=== PATIENT | female | born 1975 | race Caucasian/White ===

== ENCOUNTER → 2016-12-21 | Day surgery (SDC) | payer OTHER ==
[2016-12-17 10:10] VITALS: BP 127/57
[~2016-12-21] VITALS: Ht 157.4 cm; Wt 75.7 kg
[~2016-12-21] MED LIST: ALBUTEROL0.09 MG/A2 IH; AMOXICILLIN500 MG PO; ASMANEX TW110 MCG/AC IH; ASMANEX220 MCG INH; AUGMENTIN 875 M1 TAB PO; AUGMENTIN 875875 MG PO; BACTRIM DS 8001 TA1 PO; CELEXA10 MG PO; CEPHALEXIN500 M1 PO; CIPRO500 MG PO; CIPROFLOXACIN500 MG PO; FAMVIR500 MG PO; FLOVENT INHALER; FLOVENT0.044 MG/A IH; Fioricet 325 MG1 TAB PO; IMODIUM2 MG PO; KLONOPIN1 M1 PO; KLONOPIN1 MG PO; LOMOTIL 0.025 M1 TA1 PO; MEDROL DOSEPAK4 MG PO; NORCO 325 MG-51 TAB PO; PREDNICOT20 MG PO; PRILOSEC20 MG PO; PRILOSEC40 MG PO; QVAR0.08 MG/AC IH; ROBAXIN750 MG PO; TESSALON PERLE200 MG PO; TOPROL XL25 MG PO; TRAMADOL HCL50 MG PO; TRIMOX500 MG PO; TYLENOL WITH CO1 TA1 PO; ULTRAM50 MG PO; VICODIN 5/500 505 M1 PO; VICODIN 5/500 505 MG PO; VICODIN 500 MG-1 TAB PO; XANAX0.5 MG PO; XANAX1 MG PO; ZANTAC150 MG PO; ZOFRAN ODT4 MG SL; ZOFRAN4 MG PO; ZOLOFT20 MG/ML PO
--- NOTE | ~2016-12-21 | O ---
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 She had had 1 , but has no history of any previous cervical manipulation such as conizations, LEEPs, etc. POSTOPERATIVE DIAGNOSES: Pap smear in the office showing low grade squamous intraepithelial lesion and positive high risk human papillomavirus, but unable to perform a colposcopy in the office due to an extremely anterior cervix for unknown reason. She had had 1 , but has no history of any previous cervical manipulation such as conizations, LEEPs, etc. Significantly scarred anterior ectocervix to the anterior vaginal wall and essentially very minimal vaginal ectocervix at all. The colposcopy itself was negative. OPERATION: Itself was a colposcopy under anesthesia, high risk HPV genotyping 16, 18, 45 and an endocervical curetting. SURGEON: Janel. ANESTHESIA: MAC. ESTIMATED BLOOD LOSS: Minimal. REPLACEMENTS: IV fluids and Toradol. COMPLICATIONS: There were no complications. CONDITION: The patient's condition to recovery stable. OPERATIVE SUMMARY: The patient was taken to the operating room in supine position. MAC anesthesia, lithotomy position, prepped and draped in routine manner. The cervix with several manipulators and a tenaculum was able to be visualized, but the anterior cervix itself was extremely scarred to the anterior vaginal wall and essentially was nonexistent visualization. The rest of the ectocervix was extremely minimal as far as the vaginal cervical component went. We did paint the ectocervix with acetic acid and colposcopic exam revealed no atypicalities. We performed using Cytobrush and spatula the obtained material for the genotyping high risk HPV, genotyping 16, 18, 45 and then performed an ECC. All tissue was removed and sent to the lab for processing and review. The cervix was then cleaned off. Good hemostasis was noted. The tenaculum was removed and there was no bleeding from this site. All instrumentation was removed. The patient was taken out of lithotomy position, awakened and transferred to recovery in satisfactory condition. [place], [place] OPERATIVE NOTE NAME: JOCE RODRGIUEZ Ab UNIT #: [id number] ROOM: DOCTOR: EREN HUMPHREY MD BIRTHDATE: [birth year] EREN HUMPHREY MD CM:OPRECORD:OPERATIVE NOTE [id number] EREN HUMPHREY MD 12/21/16 1234 interface
--- NOTE | ~2016-12-21 | WRIGHTHP ---
[place], [place] PATIENT HISTORY AND PHYSICAL EXAM NAME: JOCE RODRIGUEZ [facility] #: [id number] UNIT #: [id number] ROOM: DOCTOR: EREN HUMPHREY MD BIRTHDATE: [birth year] DOS: For surgery on 12/21/2016. HISTORY OF PRESENT ILLNESS: She is a 41-year-old white female, 2, para 2, status post tubal ligation and NovaSure endometrial ablation, who on an annual exam on 12/07/2016 had a Pap smear revealing low-grade KEVYN plus high risk HPV. The patient had come in for colposcopy for these diagnoses, but her cervix was extremely anterior, very difficult to visualize, much less to perform a colposcopy on. My efforts were oglesby, but causing the patient discomfort and we decided mutually that performing a colposcopy and high-risk HPV genotyping under anesthesia would be best. To that end, the consent was signed for a colposcopy and high-risk HPV genotyping under anesthesia and we scheduled this on 12/21/2016. SOCIAL HISTORY: The patient reveals her to be a nonsmoker. She does drink socially. 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 MEDICATIONS: The patient is taking Vyvanse 30 mg capsules in the morning. She is also taking Vicodin 5/300 one tablet as needed p.r.n. before she has physical therapy. PAST MEDICAL AND SURGICAL HISTORY: The patient has a history of anxiety, asthma and tachycardia. Two pregnancies, one vaginal delivery and the second was a primary section. She also has had a cholecystectomy in 2011 as well as a tubal. She has been hospitalized for gastritis, colitis and course for childbirth. REVIEW OF SYSTEMS: Otherwise is stable. FAMILY HISTORY: Reveals her father with hypertension, diabetes, heart disease and status post CVA. Her mother has COPD. Paternal grandmother with cancer of a questionable type. Maternal grandmother with heart disease and cancer again of an unknown type. Her sister also has kidney stones and her son has OCD. PHYSICAL EXAMINATION: GENERAL: Reveals a pleasant white female. She is in no significant distress. VITAL SIGNS: Blood pressure 132/70. She is 5 feet and 176 pounds, BMI is 33.25. HEENT: Grossly intact. NECK: Grossly intact. LUNGS: Grossly intact. CARDIAC: Grossly intact. BREASTS: Grossly intact. ABDOMEN: Grossly intact. EXTREMITIES: Grossly intact. NEUROLOGIC: Grossly intact. GENITOURINARY: External genitalia: Vagina normal. Cervix has been noted above. Uterus is anteverted and anteflexed, somewhat poorly mobile, normal in [place], [place] PATIENT HISTORY AND PHYSICAL EXAM NAME: JOCE RODRIGUEZ UNIT #: [id number] ROOM: DOCTOR: EREN HUMPHREY MD BIRTHDATE: [birth year] size and configuration, nontender. Adnexa negative. RECTAL: Deferred. ASSESSMENT: The assessment is that of a patient with low-grade squamous intraepithelial lesion and positive high-risk human papillomavirus on Pap, but unable to evaluate per colposcopy in the office. PLAN: On 12/21/2016, we will take the patient to the operating room for colposcopy and high risk HPV genotyping 16, 18 and 45. EREN HUMPHREY MD CM:HISPHYS:PATIENT HISTORY AND PHYSICAL EXAMINATION 1412 [id number] KYLE STEVEN [facility] EREN HUMPHREY MD 12/19/16 [id number] interface
[2016-12-21 10:12] VITALS: BP 116/83
[2016-12-21 11:31] VITALS: BP 102/74
[2016-12-21 11:53] VITALS: BP 101/81
== END | disposition home or self-care (01) ==
LOC: SDC 12-17 10:15
PROVIDERS: Obstetrics & Gynecology
DX: N87.0 Mild cervical dysplasia (principal); F41.9 Anxiety disorder, unspecified; J45.909 Unspecified asthma, uncomplicated; R00.0 Tachycardia, unspecified; Z82.49 Family history of ischemic heart disease and other diseases of the circulatory system; Z83.3 Family history of diabetes mellitus; Z82.3 Family history of stroke; Z82.5 Family history of asthma and other chronic lower respiratory diseases; Z98.51 Tubal ligation status

== ENCOUNTER → 2017-02-15 | Outpatient (CLI) | payer OTHER ==
[2017-02-16 07:06] LABS: RHEUMATOID ARTHRITIS FACTOR <10.0 IU/mL (0.0-13.9)
== END | disposition home or self-care (01) ==
LOC: LAB 10:51
PROVIDERS: Anesthesiology
DX: M25.50 Pain in unspecified joint (principal)

== ENCOUNTER 2017-03-17 20:52 | Emergency (ER) | payer OTHER ==
[~2017-03-17] VITALS: Ht 157.4 cm; Wt 75.7 kg
[2017-03-17 20:59] VITALS: BP 136/88
[2017-03-17] MEDS ORDERED: VYVANSE30 MG PO (21:00)
[2017-03-17] MEDS ORDERED: PRILOSEC20 M1 PO (21:00)
[2017-03-17] MEDS ORDERED: NORCO 5-325 TA1 EACH PO (21:00)
[2017-03-17 21:23] LABS: BASO % 0.4 % (0.0-1.0); EOS % 0.4 % (1.0-4.0); HEMATOCRIT 40.1 % (37.0-47.0); LYMPH # 2.8 10*3/uL (1.3-4.4); LYMPH % 26.1 % (27.0-41.0); MEAN CELL VOLUME 85.3 fl (81.0-99.0); MEAN CORPUSCULAR HGB 29.8 pg (27.0-31.0); MEAN CORPUSCULAR HGB CONC 34.9 g/dl (33.0-37.0); MEAN PLATELET VOLUME 12.1 fl (9.6-12.3); MONO # 0.8 10*3/uL (0.1-1.0); MONO % 7.6 % (3.0-9.0); NEUT % 65.2 % (47.0-73.0); PLATELET COUNT AUTOMATED 240 10*3/uL (130-400); RED CELL DISTRI WIDTH 12.6 % (0-14.5); WHITE BLOOD COUNT 10.7 10*3/uL (4.8-10.8)
[2017-03-17 21:36] LABS: PROTHROMBIN TIME 10.2 SECONDS (9.0-12.4)
[2017-03-17 21:41] LABS: ALKALINE PHOSPHATASE 85 U/L (45-117); B-hCG (QUALITATIVE) NEGATIVE (NEGATIVE); BILIRUBIN, TOTAL 0.4 mg/dl (0.2-1.0); BUN 11 mg/dl (7-24); C-REACTIVE PROTEIN 0.47 MG/DL (0-0.3); CARBON DIOXIDE 24 mmol/L (21-32); CHLORIDE 107 mmol/L (98-107); EST GLOM FILT AFRICAN AMERICAN > 60 ml/min; GLUCOSE 106 mg/dL (65-99); MAGNESIUM 2.1 mg/dL (1.5-2.1); POTASSIUM 3.3 mmol/L (3.5-5.1); SGOT/AST 15 IU/L (3-35); SGPT/ALT 34 U/L (12-78); SODIUM 144 mmol/L (136-145); TOTAL PROTEIN 7.5 gm/dL (6.4-8.2)
[2017-03-18 00:20] LABS: BILIRUBIN NEGATIVE (NEGATIVE); BLOOD TRACE-INTACT (NEGATIVE); CLARITY SL CLOUDY (CLEAR); COLOR YELLOW (YELLOW); GLUCOSE NEGATIVE (NEGATIVE); KETONE NEGATIVE (NEGATIVE); LEUKO ESTERASE NEGATIVE (NEGATIVE); NITRITE NEGATIVE (NEGATIVE); PROTEIN NEGATIVE (NEGATIVE); SPECIFIC GRAVITY 1.025 (1.005-1.030); UROBILINOGEN 0.2 E.U./dl (0.2-1.0)
[2017-03-18 00:26] LABS: URINE REFLEX COMMENT NO (NO)
[2017-03-18] MEDS ORDERED: REGLAN5 MG PO (00:57)
== END 2017-03-18 01:18 | disposition home or self-care (01) ==
LOC: ED 20:52
PROVIDERS: Emergency Medicine Emergency Medical Services
DX: K52.9 Noninfective gastroenteritis and colitis, unspecified (principal); Z90.49 Acquired absence of other specified parts of digestive tract; Z79.899 Other long term (current) drug therapy

== ENCOUNTER 2017-06-28 14:09 | Emergency (ER) | payer OTHER ==
[~2017-06-28] VITALS: Ht 157.4 cm; Wt 75.7 kg
[~2017-06-28 14:09] MED LIST changes: +NORCO 5-325 TA1 EACH PO; +PRILOSEC20 M1 PO; +REGLAN5 MG PO; +VYVANSE30 MG PO
[2017-06-28 14:19] VITALS: BP 143/95
[2017-06-28 14:33] LABS: BILIRUBIN NEGATIVE (NEGATIVE); BLOOD TRACE-INTACT (NEGATIVE); CLARITY CLEAR (CLEAR); COLOR YELLOW (YELLOW); GLUCOSE NEGATIVE (NEGATIVE); KETONE NEGATIVE (NEGATIVE); LEUKO ESTERASE NEGATIVE (NEGATIVE); NITRITE NEGATIVE (NEGATIVE); PH 6.5 (5.0-9.0); SPECIFIC GRAVITY <= 1.005 (1.005-1.030); UROBILINOGEN 0.2 E.U./dl (0.2-1.0)
[2017-06-28 14:56] LABS: BACTERIA TRACE
== END 2017-06-28 16:49 | disposition home or self-care (01) ==
LOC: ED 14:09
PROVIDERS: Nurse Practitioner Family
DX: R30.0 Dysuria (principal); F17.200 Nicotine dependence, unspecified, uncomplicated; Z98.890 Other specified postprocedural states; Z98.51 Tubal ligation status; Z79.899 Other long term (current) drug therapy; Z88.6 Allergy status to analgesic agent

== ENCOUNTER 2018-02-04 21:46 | Emergency (ER) | payer OTHER ==
[~2018-02-04] VITALS: Ht 160 cm; Wt 77.1 kg
[2018-02-04 22:59] VITALS: BP 131/90
[2018-02-04] MEDS ORDERED: ZITHROMAX250 MG PO (23:11)
[2018-02-04] MEDS ORDERED: PROAIR HFA8.5 GM INH (23:11)
[2018-02-04] MEDS ORDERED: PREDNISONE20 M1 PO (23:11)
== END 2018-02-04 23:36 | disposition home or self-care (01) ==
LOC: ED 21:46
DX: J20.9 Acute bronchitis, unspecified (principal); J02.9 Acute pharyngitis, unspecified; J45.909 Unspecified asthma, uncomplicated; F17.210 Nicotine dependence, cigarettes, uncomplicated; Z98.890 Other specified postprocedural states; Z98.51 Tubal ligation status; Z88.6 Allergy status to analgesic agent; Z79.899 Other long term (current) drug therapy

== ENCOUNTER 2019-06-28 12:06 | Emergency (ER) | payer OTHER ==
[~2019-06-28] VITALS: Wt 75.7 kg
[~2019-06-28 12:06] MED LIST changes: +PREDNISONE20 M1 PO; +PROAIR HFA8.5 GM INH; +ZITHROMAX250 MG PO
[2019-06-28 12:45] LABS: BILIRUBIN NEGATIVE (NEGATIVE); BLOOD 2+ (NEGATIVE); CLARITY CLOUDY (CLEAR); COLOR YELLOW (YELLOW); GLUCOSE NEGATIVE (NEGATIVE); KETONE NEGATIVE (NEGATIVE); LEUKO ESTERASE 1+ (NEGATIVE); NITRITE POSITIVE (NEGATIVE); PH 5.5 (5.0-9.0); SPECIFIC GRAVITY 1.025 (1.005-1.030)
[2019-06-28 13:09] LABS: BASO # 0.1 10*3/uL (0.0-0.1); BASO % 0.5 % (0.0-1.0); EOS % 0.4 % (1.0-4.0); HEMATOCRIT 44.5 % (37.0-47.0); HEMOGLOBIN 14.9 g/dl (12.0-16.0); LYMPH % 19.2 % (27.0-41.0); MEAN CELL VOLUME 88.5 fl (81.0-99.0); MEAN CORPUSCULAR HGB 29.6 pg (27.0-31.0); MEAN CORPUSCULAR HGB CONC 33.5 g/dl (33.0-37.0); MEAN PLATELET VOLUME 12.6 fl (9.6-12.3); MONO # 0.8 10*3/uL (0.1-1.0); NEUT # 7.4 10*3/uL (2.3-7.9); NEUT % 71.5 % (47.0-73.0); PLATELET COUNT AUTOMATED 200 10*3/uL (130-400); RED BLOOD COUNT 5.03 10*6/uL (4.10-5.10); RED CELL DISTRI WIDTH 12.7 % (0-14.5); WHITE BLOOD COUNT 10.4 10*3/uL (4.8-10.8)
[2019-06-28 13:19] LABS: BACTERIA 2+; MUCOUS 2+; RBC TNTC rbc/hpf (0-2); WBC TNTC wbc/hpf (0-5)
[2019-06-28 13:25] LABS: ALBUMIN 3.7 gm/dl (3.1-4.5); ALKALINE PHOSPHATASE 95 U/L (45-117); BUN 7 mg/dl (7-24); CHLORIDE 108 mmol/L (98-107); CREATININE 0.78 mg/dL (0.55-1.02); POTASSIUM 3.4 mmol/L (3.5-5.1); SGOT/AST 13 IU/L (3-35); SGPT/ALT 32 U/L (12-78); SODIUM 140 mmol/L (136-145); TOTAL PROTEIN 7.9 gm/dL (6.4-8.2)
[2019-06-28] MEDS ORDERED: SEPTDS PO (13:49)
[2019-06-28 13:52] VITALS: BP 106/68
== END 2019-06-28 14:15 | disposition home or self-care (01) ==
LOC: ED 12:06
PROVIDERS: Nurse Practitioner Family
DX: N39.0 Urinary tract infection, site not specified (principal); R19.7 Diarrhea, unspecified; F17.200 Nicotine dependence, unspecified, uncomplicated; Z88.8 Allergy status to other drugs, medicaments and biological substances

== ENCOUNTER → 2020-05-09 | Emergency (ER) | payer OTHER ==
[~2020-05-09] VITALS: Ht 154.9 cm; Wt 75.7 kg
[~2020-05-09] MED LIST changes: +DICYCLOMINE HCL20 MG PO; +SEPTDS PO
[2020-05-09 15:30] LABS: BASO # 0.1 10*3/uL (0.0-0.1); BASO % 0.5 % (0.0-1.0); EOS # 0.1 10*3/uL (0.0-0.4); LYMPH # 2.4 10*3/uL (1.3-4.4); LYMPH % 24.5 % (27.0-41.0); MEAN CELL VOLUME 86.6 fl (81.0-99.0); MEAN CORPUSCULAR HGB 28.7 pg (27.0-31.0); MEAN CORPUSCULAR HGB CONC 33.2 g/dl (33.0-37.0); MEAN PLATELET VOLUME 12.8 fl (9.6-12.3); MONO # 0.7 10*3/uL (0.1-1.0); MONO % 7.3 % (3.0-9.0); NEUT # 6.4 10*3/uL (2.3-7.9); NEUT % 66.5 % (47.0-73.0); PLATELET COUNT AUTOMATED 228 10*3/uL (130-400); RED BLOOD COUNT 5.08 10*6/uL (4.10-5.10); RED CELL DISTRI WIDTH 12.4 % (0-14.5); WHITE BLOOD COUNT 9.7 10*3/uL (4.8-10.8)
[2020-05-09 15:50] LABS: ALBUMIN 3.8 gm/dl (3.1-4.5); ALKALINE PHOSPHATASE 79 U/L (45-117); BUN 7 mg/dl (7-24); CHLORIDE 109 mmol/L (98-107); CREATININE 0.63 mg/dL (0.55-1.02); LIPASE 230 U/L (73-393); POTASSIUM 3.5 mmol/L (3.5-5.1); SGOT/AST 11 IU/L (3-35); SGPT/ALT 20 U/L (12-78); SODIUM 140 mmol/L (136-145); TOTAL PROTEIN 7.9 gm/dL (6.4-8.2)
[2020-05-09 16:33] LABS: BILIRUBIN NEGATIVE; BLOOD NEGATIVE (NEGATIVE); CLARITY CLOUDY (CLEAR); COLOR YELLOW (YELLOW); GLUCOSE NEGATIVE; KETONE NEGATIVE; LEUKO ESTERASE NEGATIVE (NEGATIVE); NITRITE NEGATIVE (NEGATIVE)
[2020-05-09 16:40] LABS: BACTERIA 3+; MUCOUS 2+; RBC 0-2 rbc/hpf (0-2)
[2020-05-09 19:59] VITALS: BP 112/78
== END ==
LOC: ED 14:41
PROVIDERS: Nurse Practitioner Family
DX: R19.7 Diarrhea, unspecified (principal); R10.11 Right upper quadrant pain; R10.31 Right lower quadrant pain; Z90.49 Acquired absence of other specified parts of digestive tract; Z88.6 Allergy status to analgesic agent

== ENCOUNTER 2020-05-27 13:06 | Emergency (ER) | payer OTHER ==
[~2020-05-27] VITALS: Ht 157.4 cm; Wt 75.7 kg
[2020-05-27 13:49] LABS: BILIRUBIN NEGATIVE; BLOOD NEGATIVE (NEGATIVE); CLARITY CLEAR (CLEAR); COLOR YELLOW (YELLOW); GLUCOSE NEGATIVE; KETONE NEGATIVE; LEUKO ESTERASE NEGATIVE (NEGATIVE); NITRITE NEGATIVE (NEGATIVE); SPECIFIC GRAVITY < 1.005 (1.001-1.030); UROBILINOGEN 0.2 E.U./dl (0.0-1.0)
[2020-05-27 13:58] LABS: BACTERIA 3+
[2020-05-27 14:08] LABS: BASO % 0.4 % (0.0-1.0); EOS % 0.2 % (1.0-4.0); HEMATOCRIT 46.6 % (37.0-47.0); LYMPH # 1.4 10*3/uL (1.3-4.4); LYMPH % 16.8 % (27.0-41.0); MEAN CELL VOLUME 87.1 fl (81.0-99.0); MEAN CORPUSCULAR HGB CONC 33.3 g/dl (33.0-37.0); MEAN PLATELET VOLUME 12.3 fl (9.6-12.3); MONO # 0.4 10*3/uL (0.1-1.0); MONO % 5.2 % (3.0-9.0); NEUT # 6.5 10*3/uL (2.3-7.9); NEUT % 77.2 % (47.0-73.0); PLATELET COUNT AUTOMATED 210 10*3/uL (130-400); RED BLOOD COUNT 5.35 10*6/uL (4.10-5.10); RED CELL DISTRI WIDTH 12.4 % (0-14.5); WHITE BLOOD COUNT 8.5 10*3/uL (4.8-10.8)
[2020-05-27 14:28] LABS: ALBUMIN 4.2 gm/dl (3.1-4.5); ALKALINE PHOSPHATASE 87 U/L (45-117); BUN 6 mg/dl (7-24); CHLORIDE 110 mmol/L (98-107); CREATININE 0.67 mg/dL (0.55-1.02); LIPASE 154 U/L (73-393); POTASSIUM 3.8 mmol/L (3.5-5.1); SGOT/AST 22 IU/L (3-35); SGPT/ALT 47 U/L (12-78); SODIUM 140 mmol/L (136-145); TOTAL PROTEIN 8.1 gm/dL (6.4-8.2)
[2020-05-27 15:29] VITALS: BP 132/76
[2020-05-27] MEDS ORDERED: LOMOTIL 2.5-0.1 EACH PO (16:19)
[2020-05-27] MEDS ORDERED: ZOFRAN4 MG PO (16:38)
== END 2020-05-27 16:26 | disposition home or self-care (01) ==
LOC: ED 13:06
PROVIDERS: Emergency Medicine; Nurse Practitioner Family
DX: R19.7 Diarrhea, unspecified (principal); J45.909 Unspecified asthma, uncomplicated; K21.9 Gastro-esophageal reflux disease without esophagitis; F41.9 Anxiety disorder, unspecified; F17.200 Nicotine dependence, unspecified, uncomplicated; Z88.8 Allergy status to other drugs, medicaments and biological substances; Z79.899 Other long term (current) drug therapy

== ENCOUNTER 2020-12-04 11:05 | Inpatient (IN) | payer OTHER ==
[~2020-12-04] VITALS: Ht 157.4 cm; Wt 78.0 kg
[~2020-12-04 11:05] MED LIST changes: +LOMOTIL 2.5-0.1 EACH PO
[2020-12-04 11:11] VITALS: BP 129/81
[2020-12-04] MEDS ORDERED: HYDROCODONE-AC1 EAC1 PO (11:21)
[2020-12-04 11:35] LABS: BILIRUBIN Negative (Negative); BLOOD Negative (Negative); CLARITY Clear (Clear); COLOR Yellow (Yellow); GLUCOSE Negative (Negative); KETONE Negative (Negative); LEUKO ESTERASE Negative (Negative); NITRITE Negative (Negative); UROBILINOGEN 0.2 E.U./dl (0.0-1.0)
[2020-12-04 11:53] LABS: MUCOUS TRACE; RBC 0-2 rbc/hpf (0-2); WBC 0-2 wbc/hpf (0-5)
[2020-12-04 12:20] LABS: BASO # 0.1 10*3/uL (0.0-0.1); BASO % 0.7 % (0.0-1.0); EOS # 0.1 10*3/uL (0.0-0.4); EOS % 1.2 % (1.0-4.0); LYMPH # 2.1 10*3/uL (1.3-4.4); MEAN CELL VOLUME 87.6 fl (81.0-99.0); MEAN CORPUSCULAR HGB 29.1 pg (27.0-31.0); MEAN CORPUSCULAR HGB CONC 33.2 g/dl (33.0-37.0); MEAN PLATELET VOLUME 11.9 fl (9.6-12.3); MONO # 0.7 10*3/uL (0.1-1.0); MONO % 6.9 % (3.0-9.0); NEUT % 69.8 % (47.0-73.0); PLATELET COUNT AUTOMATED 230 10*3/uL (130-400); RED BLOOD COUNT 5.02 10*6/uL (4.10-5.10); RED CELL DISTRI WIDTH 12.5 % (0-14.5)
[2020-12-04 12:20] LABS: URINE AMPHETAMINES < 1000 (1000ng/ml); URINE BARBITURATES < 200 (200ng/ml); URINE BENZODIAZEPINES < 200 (200ng/ml); URINE CANNABINOIDS (THC) < 50 (50ng/ml); URINE COCAINE < 300 (300ng/ml); URINE METHADONE < 300 (300ng/ml); URINE OPIATES < 300 (300ng/ml)
[2020-12-04 12:23] LABS: URINE PHENCYCLIDINE < 25 (25ng/ml)
[2020-12-04 12:37] LABS: ALBUMIN 3.7 gm/dl (3.1-4.5); ALKALINE PHOSPHATASE 76 U/L (45-117); BUN 6 mg/dl (7-24); CHLORIDE 105 mmol/L (98-107); CREATININE 0.65 mg/dL (0.55-1.02); POTASSIUM 3.8 mmol/L (3.5-5.1); SGOT/AST 8 IU/L (3-35); SGPT/ALT 16 U/L (12-78); SODIUM 138 mmol/L (136-145); TOTAL PROTEIN 7.5 gm/dL (6.4-8.2)
[2020-12-04 12:44] LABS: TROPONIN I < 0.015 ng/ml (<0.045)
[2020-12-04 14:22] VITALS: BP 117/87
[2020-12-04 14:55] VITALS: BP 134/84
[2020-12-04] MEDS ORDERED: ZYRTEC10 M3 PO (15:06)
[2020-12-04 16:00] VITALS: BP 134/84
[2020-12-04 20:00] VITALS: BP 124/91
[2020-12-05] VITALS (10 sets, daily range): BP systolic 105–140; BP diastolic 67–95
[2020-12-05 06:18] LABS: BASO # 0.1 10*3/uL (0.0-0.1); BASO % 0.8 % (0.0-1.0); EOS # 0.2 10*3/uL (0.0-0.4); HEMATOCRIT 42.3 % (37.0-47.0); LYMPH # 2.3 10*3/uL (1.3-4.4); LYMPH % 30.7 % (27.0-41.0); MEAN CELL VOLUME 87.8 fl (81.0-99.0); MEAN CORPUSCULAR HGB 28.8 pg (27.0-31.0); MEAN CORPUSCULAR HGB CONC 32.9 g/dl (33.0-37.0); MEAN PLATELET VOLUME 12.2 fl (9.6-12.3); MONO # 0.6 10*3/uL (0.1-1.0); MONO % 8.6 % (3.0-9.0); NEUT # 4.3 10*3/uL (2.3-7.9); NEUT % 57.6 % (47.0-73.0); PLATELET COUNT AUTOMATED 228 10*3/uL (130-400); RED BLOOD COUNT 4.82 10*6/uL (4.10-5.10); RED CELL DISTRI WIDTH 12.6 % (0-14.5); WHITE BLOOD COUNT 7.5 10*3/uL (4.8-10.8)
[2020-12-05 06:28] LABS: ALBUMIN 3.2 gm/dl (3.1-4.5); ALKALINE PHOSPHATASE 75 U/L (45-117); BUN 5 mg/dl (7-24); CHLORIDE 108 mmol/L (98-107); CHOLESTEROL 168 mg/dL (<200); FREE T4 1.07 ng/dl (0.76-1.46); HDL CHOLESTEROL 63 mg/dl (40-60); LDL CHOLESTEROL 82 mg/dL (9-159); POTASSIUM 3.5 mmol/L (3.5-5.1); SGOT/AST 20 IU/L (3-35); SGPT/ALT 25 U/L (12-78); SODIUM 139 mmol/L (136-145); TRIGLYCERIDES 116 mg/dl (<150); VLDL CHOLESTEROL 23 mg/dL (6-40)
[2020-12-05 06:35] LABS: THYROID STIM HORMONE (HS) 0.862 uIU/ml (0.358-4.75); TOTAL PROTEIN 6.6 gm/dL (6.4-8.2)
[2020-12-06] VITALS: BP 106/67
[2020-12-06 06:38] LABS: BASO % 0.1 % (0.0-1.0); HEMATOCRIT 42.2 % (37.0-47.0); LYMPH # 1.2 10*3/uL (1.3-4.4); LYMPH % 8.2 % (27.0-41.0); MEAN CELL VOLUME 89.6 fl (81.0-99.0); MEAN CORPUSCULAR HGB 28.9 pg (27.0-31.0); MEAN CORPUSCULAR HGB CONC 32.2 g/dl (33.0-37.0); MEAN PLATELET VOLUME 12.9 fl (9.6-12.3); MONO # 0.9 10*3/uL (0.1-1.0); MONO % 6.5 % (3.0-9.0); NEUT # 12.2 10*3/uL (2.3-7.9); NEUT % 84.7 % (47.0-73.0); PLATELET COUNT AUTOMATED 236 10*3/uL (130-400); RED BLOOD COUNT 4.71 10*6/uL (4.10-5.10); RED CELL DISTRI WIDTH 12.7 % (0-14.5); WHITE BLOOD COUNT 14.4 10*3/uL (4.8-10.8)
[2020-12-06 06:47] LABS: ALBUMIN 3.3 gm/dl (3.1-4.5); ALKALINE PHOSPHATASE 103 U/L (45-117); BUN 6 mg/dl (7-24); CHLORIDE 108 mmol/L (98-107); CREATININE 0.67 mg/dL (0.55-1.02); POTASSIUM 4.3 mmol/L (3.5-5.1); SGOT/AST 37 IU/L (3-35); SGPT/ALT 77 U/L (12-78); SODIUM 137 mmol/L (136-145); TOTAL PROTEIN 7.2 gm/dL (6.4-8.2)
[2020-12-06 07:07] LABS: HEPATITIS B SURFACE AG Negative (Negative)
[2020-12-06 08:00] VITALS: BP 107/71
[2020-12-06] MEDS ORDERED: ZOFRAN4 MG PO (09:56)
[2020-12-06] MEDS ORDERED: DOK COLACE100 MG PO (09:56)
[2020-12-06] MEDS ORDERED: HYDROCODONE-AC1 EAC1 PO (12:17)
== END 2020-12-06 12:27 | disposition home or self-care (01) | DRG 224 ==
LOC: ED 11:05 → EDHOLD 13:43 → 4E 13:43
PROVIDERS: Internal Medicine; Social Worker Clinical; Student in an Organized Health Care Education/Training Program; Surgery; ADMIT Internal Medicine; ATTEND Internal Medicine
PROC: 0DTJ4ZZ Resection of Appendix, Percutaneous Endoscopic Approach (ICD-10-PCS; principal; 2020-12-05)
PROC: 0UT04ZZ Resection of Right Ovary, Percutaneous Endoscopic Approach (ICD-10-PCS; 2020-12-05)
PROC: 0UT54ZZ Resection of Right Fallopian Tube, Percutaneous Endoscopic Approach (ICD-10-PCS; 2020-12-05)
PROC: 0DNU4ZZ Release Omentum, Percutaneous Endoscopic Approach (ICD-10-PCS; 2020-12-05)
PROC: 0DN84ZZ Release Small Intestine, Percutaneous Endoscopic Approach (ICD-10-PCS; 2020-12-05)
DX: K35.80 Unspecified acute appendicitis (principal); R19.03 Right lower quadrant abdominal swelling, mass and lump; K52.9 Noninfective gastroenteritis and colitis, unspecified; R73.9 Hyperglycemia, unspecified; R55 Syncope and collapse; M54.16 Radiculopathy, lumbar region; N83.201 Unspecified ovarian cyst, right side; K66.0 Peritoneal adhesions (postprocedural) (postinfection); Z90.49 Acquired absence of other specified parts of digestive tract; Z82.49 Family history of ischemic heart disease and other diseases of the circulatory system; Z83.6 Family history of other diseases of the respiratory system; Z83.79 Family history of other diseases of the digestive system

== ENCOUNTER 2020-12-22 11:11 | Emergency (ER) | payer OTHER ==
[~2020-12-22] VITALS: Ht 157.4 cm; Wt 78.9 kg
[~2020-12-22 11:11] MED LIST changes: +DOK COLACE100 MG PO; +HYDROCODONE-AC1 EAC1 PO; +ZYRTEC10 M3 PO
[2020-12-22 11:27] VITALS: BP 127/90
[2020-12-22 11:53] LABS: BILIRUBIN Negative (Negative); BLOOD Negative (Negative); CLARITY Turbid (Clear); COLOR Dark Yellow (Yellow); GLUCOSE Negative (Negative); KETONE Trace (Negative); LEUKO ESTERASE 1+ (Negative); NITRITE Negative (Negative); SPECIFIC GRAVITY >= 1.030 (1.001-1.030)
[2020-12-22 12:06] LABS: BACTERIA 2+; EPITHELIAL CELLS 16-20; MUCOUS 1+
== END 2020-12-22 11:35 | disposition home or self-care (01) ==
LOC: ED 11:11
PROVIDERS: Emergency Medicine
DX: G89.18 Other acute postprocedural pain (principal); Z88.8 Allergy status to other drugs, medicaments and biological substances; Z79.899 Other long term (current) drug therapy; Z98.890 Other specified postprocedural states; Z98.51 Tubal ligation status; Z90.49 Acquired absence of other specified parts of digestive tract

== ENCOUNTER → 2021-07-22 | Outpatient (CLI) | payer OTHER ==
[2021-07-23 13:07] LABS: FOLLICLE STIMULATING HORMONE 5.4 mIU/mL (.)
== END | disposition home or self-care (01) ==
LOC: LAB 16:14
PROVIDERS: ATTEND Obstetrics & Gynecology
DX: Z78.0 Asymptomatic menopausal state (principal)

== ENCOUNTER 2022-11-12 14:58 | Emergency (ER) | payer OTHER ==
[~2022-11-12] VITALS: Ht 160 cm; Wt 75.7 kg
[2022-11-12 15:30] VITALS: BP 139/93
== END 2022-11-12 16:25 | disposition left against medical advice (07) ==
LOC: ED 14:58
DX: R07.89 Other chest pain (principal); J02.9 Acute pharyngitis, unspecified; Z53.21 Procedure and treatment not carried out due to patient leaving prior to being seen by health care provider

== ENCOUNTER 2022-11-30 18:54 | Emergency (ER) | payer OTHER ==
[~2022-11-30] VITALS: Wt 71.2 kg
[2022-11-30 19:37] LABS: BASO # 0.1 10*3/uL (0.0-0.1); BASO % 0.4 % (0.0-1.0); EOS # 0.1 10*3/uL (0.0-0.4); EOS % 0.4 % (1.0-4.0); HEMATOCRIT 45.3 % (37.0-47.0); MEAN CORPUSCULAR HGB 28.7 pg (27.0-31.0); MEAN CORPUSCULAR HGB CONC 33.8 g/dl (33.0-37.0); MONO # 0.8 10*3/uL (0.1-1.0); MONO % 6.3 % (3.0-9.0); NEUT # 8.6 10*3/uL (2.3-7.9); NEUT % 68.7 % (47.0-73.0); PLATELET COUNT AUTOMATED 238 10*3/uL (130-400); RED BLOOD COUNT 5.33 10*6/uL (4.10-5.10); RED CELL DISTRI WIDTH 12.7 % (0-14.5); WHITE BLOOD COUNT 12.5 10*3/uL (4.8-10.8)
[2022-11-30 19:51] LABS: BILIRUBIN Negative (Negative); BLOOD Negative (Negative); CLARITY Cloudy (Clear); GLUCOSE Negative (Negative); KETONE Trace (Negative); LEUKO ESTERASE 1+ (Negative); NITRITE Negative (Negative); PH 5.5 (4.5-8.0)
[2022-11-30 20:02] LABS: ALKALINE PHOSPHATASE 70 U/L (46-116); BUN 6 mg/dl (9-23); CHLORIDE 103 mmol/L (98-107); LIPASE 58 U/L (12-53); POTASSIUM 3.2 mmol/L (3.4-5.1); SGPT/ALT 7 U/L (10-49); TOTAL PROTEIN 7.5 gm/dL (6.0-8.0)
[2022-11-30 21:08] LABS: COLOR Orange (Yellow); EPITHELIAL CELLS 21-30; RBC 0-2 rbc/hpf (0-2)
[2022-12-01 00:37] VITALS: BP 117/61
== END 2022-12-01 00:37 | disposition home or self-care (01) ==
LOC: ED 18:54
PROVIDERS: Physician Assistant
DX: N83.201 Unspecified ovarian cyst, right side (principal); E87.6 Hypokalemia; E87.1 Hypo-osmolality and hyponatremia; Z88.6 Allergy status to analgesic agent; Z98.51 Tubal ligation status; Z98.890 Other specified postprocedural states; Z90.49 Acquired absence of other specified parts of digestive tract

== ENCOUNTER → 2022-12-04 | Outpatient (CLI) | payer OTHER | END | disposition home or self-care (01) | LOC: US 00:52 | PROVIDERS: ATTEND Nurse Practitioner Women's Health | DX: N83.292 Other ovarian cyst, left side (principal); N83.201 Unspecified ovarian cyst, right side ==

== ENCOUNTER → 2022-12-14 | Outpatient (CLI) | payer OTHER ==
[2022-12-15 04:06] LABS: CANCER ANTIGEN (CA) 125 12.6 U/mL (0.0-38.1)
== END | disposition home or self-care (01) ==
LOC: LAB 10:06
PROVIDERS: ATTEND Obstetrics & Gynecology
DX: Q50.5 Embryonic cyst of broad ligament (principal)

== ENCOUNTER → 2022-12-21 | Day surgery (SDC) | payer OTHER ==
[2022-12-17 14:24] VITALS: BP 125/81
[~2022-12-21] VITALS: Ht 154.9 cm; Wt 71.7 kg
[~2022-12-21] MED LIST changes: +Percocet 325 MG1 TAB PO
[2022-12-21 08:52] VITALS: BP 114/86
[2022-12-21 11:45] VITALS: BP 112/37
[2022-12-21 12:00] VITALS: BP 108/63
[2022-12-21 12:15] VITALS: BP 96/53
[2022-12-21 12:30] VITALS: BP 97/59
[2022-12-21 12:45] VITALS: BP 101/75
== END | disposition home or self-care (01) ==
LOC: SDC 12-17 14:00
PROVIDERS: ATTEND Obstetrics & Gynecology
DX: N83.202 Unspecified ovarian cyst, left side (principal); J45.909 Unspecified asthma, uncomplicated; Q50.5 Embryonic cyst of broad ligament; F41.9 Anxiety disorder, unspecified; K21.9 Gastro-esophageal reflux disease without esophagitis; Z90.49 Acquired absence of other specified parts of digestive tract; Z98.890 Other specified postprocedural states; Z79.899 Other long term (current) drug therapy

== ENCOUNTER 2023-07-09 16:47 | Emergency (ER) | payer OTHER ==
[~2023-07-09] VITALS: Ht 165.1 cm; Wt 69.9 kg
[2023-07-09 17:15] VITALS: BP 133/93
[2023-07-09 17:37] LABS: BASO # 0.1 10*3/uL (0.0-0.1); BASO % 0.6 % (0.0-1.0); EOS # 0.1 10*3/uL (0.0-0.4); EOS % 0.8 % (1.0-4.0); HEMATOCRIT 44.9 % (37.0-47.0); LYMPH # 1.6 10*3/uL (1.3-4.4); LYMPH % 17.8 % (27.0-41.0); MEAN CELL VOLUME 85.9 fl (81.0-99.0); MEAN CORPUSCULAR HGB 29.4 pg (27.0-31.0); MEAN CORPUSCULAR HGB CONC 34.3 g/dl (33.0-37.0); MEAN PLATELET VOLUME 12.8 fl (9.6-12.3); MONO # 1.1 10*3/uL (0.1-1.0); MONO % 12.1 % (3.0-9.0); NEUT % 68.4 % (47.0-73.0); PLATELET COUNT AUTOMATED 189 10*3/uL (130-400); RED BLOOD COUNT 5.23 10*6/uL (4.10-5.10); RED CELL DISTRI WIDTH 12.1 % (0-14.5); WHITE BLOOD COUNT 8.7 10*3/uL (4.8-10.8)
[2023-07-09 18:07] LABS: ALKALINE PHOSPHATASE 80 U/L (46-116); BUN 10 mg/dl (9-23); CHLORIDE 106 mmol/L (98-107); POTASSIUM 4.2 mmol/L (3.4-5.1); SGPT/ALT 12 U/L (5-49); TOTAL PROTEIN 7.5 gm/dL (6.0-8.0)
[2023-07-09] MEDS ORDERED: PREDNISONE20 M1 PO (19:47)
[2023-07-09] MEDS ORDERED: AVPAK AZITHROM250 M1 PO (19:47)
== END 2023-07-09 20:00 | disposition home or self-care (01) ==
LOC: ED 16:47
PROVIDERS: Nurse Practitioner Family
DX: J45.909 Unspecified asthma, uncomplicated (principal); K21.9 Gastro-esophageal reflux disease without esophagitis; Z88.8 Allergy status to other drugs, medicaments and biological substances; Z87.42 Personal history of other diseases of the female genital tract; Z98.51 Tubal ligation status; Z98.890 Other specified postprocedural states; Z90.49 Acquired absence of other specified parts of digestive tract

== ENCOUNTER 2024-05-23 15:48 | Emergency (ER) | payer SELFPAY ==
[~2024-05-23] VITALS: Ht 160 cm; Wt 72.1 kg
[~2024-05-23 15:48] MED LIST changes: +AVPAK AZITHROM250 M1 PO
[2024-05-23] MEDS ORDERED: SODIUM CHLORIDE 0.9% 1,000 ML IV ONE (18:00)
[2024-05-23] MEDS ORDERED: ACETAMINOPHEN 325 MG TAB PO ONE (18:00)
[2024-05-23 18:33] LABS: BASO # 0.1 10*3/uL (0.0-0.1); BASO % 0.5 % (0.0-1.0); EOS # 0.1 10*3/uL (0.0-0.4); EOS % 0.9 % (1.0-4.0); HEMATOCRIT 43.6 % (37.0-47.0); LYMPH # 2.8 10*3/uL (1.3-4.4); LYMPH % 29.1 % (27.0-41.0); MEAN CELL VOLUME 89.3 fl (81.0-99.0); MEAN CORPUSCULAR HGB 29.5 pg (27.0-31.0); MEAN PLATELET VOLUME 12.3 fl (9.6-12.3); MONO # 0.8 10*3/uL (0.1-1.0); NEUT # 5.8 10*3/uL (2.3-7.9); NEUT % 61.3 % (47.0-73.0); PLATELET COUNT AUTOMATED 216 10*3/uL (130-400); RED BLOOD COUNT 4.88 10*6/uL (4.10-5.10); RED CELL DISTRI WIDTH 12.5 % (0-14.5); WHITE BLOOD COUNT 9.5 10*3/uL (4.8-10.8)
[2024-05-23 18:41] LABS: BILIRUBIN Negative (Negative); BLOOD Negative (Negative); CLARITY Clear (Clear); COLOR Yellow (Yellow); GLUCOSE Negative (Negative); KETONE Negative (Negative); LEUKO ESTERASE Negative (Negative); NITRITE Negative (Negative); SPECIFIC GRAVITY <= 1.005 (1.001-1.030); UROBILINOGEN 0.2 E.U./dl (0.0-1.0)
[2024-05-23 18:47] LABS: BACTERIA TRACE
[2024-05-23 18:53] LABS: ACT PARTIAL THROMBO TIME 28.2 SECONDS (20.0-32.1)
[2024-05-23 18:57] LABS: ALKALINE PHOSPHATASE 85 U/L (46-116); BUN 6 mg/dl (9-23); CHLORIDE 105 mmol/L (98-107); POTASSIUM 3.7 mmol/L (3.4-5.1); TOTAL PROTEIN 7.1 gm/dL (6.0-8.0)
[2024-05-23 18:58] LABS: SGPT/ALT < 7 U/L (5-49)
[2024-05-23 19:50] VITALS: BP 131/77
[2024-05-23] MEDS ORDERED: predniSONE 20 MG TAB PO ONE (20:10)
[2024-05-23] MEDS ORDERED: PREDNISONE50 MG PO (20:14)
== END 2024-05-23 20:24 | disposition home or self-care (01) ==
LOC: ED 15:48
PROVIDERS: Nurse Practitioner
DX: R07.89 Other chest pain (principal); Z20.822 Contact with and (suspected) exposure to COVID-19; R06.02 Shortness of breath; J45.909 Unspecified asthma, uncomplicated; K21.9 Gastro-esophageal reflux disease without esophagitis; F41.9 Anxiety disorder, unspecified; F12.90 Cannabis use, unspecified, uncomplicated; Z88.8 Allergy status to other drugs, medicaments and biological substances; Z98.51 Tubal ligation status; Z90.49 Acquired absence of other specified parts of digestive tract; Z98.890 Other specified postprocedural states

== ENCOUNTER 2025-03-19 11:01 | Emergency (ER) | payer OTHER ==
[~2025-03-19] VITALS: Ht 160 cm; Wt 70.8 kg
[~2025-03-19 11:01] MED LIST changes: +PREDNISONE50 MG PO
[2025-03-19 11:28] VITALS: BP 133/93
[2025-03-19] MEDS ORDERED: Dicyclomine Hydrochloride 20 MG/10 ML OSYR PO STA (11:50)
[2025-03-19] MEDS ORDERED: MG-AL HYDROXIDE/SIMETICONE 30 ML UDC PO STA (11:50)
[2025-03-19 12:08] LABS: BASO # 0.1 10*3/uL (0.0-0.1); BASO % 0.8 % (0.0-1.0); EOS # 0.2 10*3/uL (0.0-0.4); EOS % 2.5 % (1.0-4.0); MEAN CELL VOLUME 87.2 fl (81.0-99.0); MEAN CORPUSCULAR HGB 29.3 pg (27.0-31.0); MEAN PLATELET VOLUME 12.5 fl (9.6-12.3); MONO # 0.7 10*3/uL (0.1-1.0); MONO % 8.5 % (3.0-9.0); NEUT # 5.1 10*3/uL (2.3-7.9); NEUT % 65.4 % (47.0-73.0); NUCLEATED RED BLOOD CELL 0.0 % (0.0-0.0); NUCLEATED RED BLOOD CELL 0.0 10*3/uL (0.0-0.0); PLATELET COUNT AUTOMATED 201 10*3/uL (130-400); RED CELL DISTRI WIDTH 12.1 % (0-14.5)
[2025-03-19] MEDS ORDERED: IOHEXOL 300 MG/ML 100 ML VIAL IV ONE (12:10)
[2025-03-19 12:29] LABS: BILIRUBIN Negative (Negative); BLOOD Negative (Negative); CLARITY Clear (Clear); COLOR Yellow (Yellow); KETONE Negative (Negative); LEUKO ESTERASE Trace (Negative); NITRITE Negative (Negative); PH 7.0 (4.5-8.0); SPECIFIC GRAVITY 1.010 (1.001-1.030); UROBILINOGEN 0.2 E.U./dl (0.0-1.0)
[2025-03-19 12:30] LABS: BUN 8 mg/dl (9-23); SGPT/ALT 10 U/L (5-49)
[2025-03-19 12:47] LABS: BACTERIA 1+
[2025-03-19] MEDS ORDERED: SUCRALFATE 1 GM TAB PO ONE (13:35)
[2025-03-19] MEDS ORDERED: PROTONIX40 MG PO (14:59)
== END 2025-03-19 15:14 | disposition home or self-care (01) ==
LOC: ED 11:01
PROVIDERS: Nurse Practitioner
DX: K21.9 Gastro-esophageal reflux disease without esophagitis (principal); J45.909 Unspecified asthma, uncomplicated; F41.9 Anxiety disorder, unspecified; F17.200 Nicotine dependence, unspecified, uncomplicated; Z79.899 Other long term (current) drug therapy; Z88.6 Allergy status to analgesic agent; Z90.49 Acquired absence of other specified parts of digestive tract; Z98.51 Tubal ligation status; Z98.890 Other specified postprocedural states

== ENCOUNTER → 2025-05-14 | Day surgery (SDC) | payer OTHER ==
[~2025-05-14] VITALS: Ht 160 cm; Wt 66.7 kg
[~2025-05-14] MED LIST changes: +Lactated Ringer's Solution 1,000 ML IV ONE; +Lidocaine Hydrochloride 2% 5 ML SDV IM ONE; +PROPOFOL 200 MG/20 ML VIAL IV ONE; +PROTONIX40 MG PO
[2025-05-14 10:15] VITALS: BP 118/84
[2025-05-14 10:42] VITALS: BP 107/71
[2025-05-14 10:57] VITALS: BP 98/52
[2025-05-14 11:12] VITALS: BP 107/66
== END | disposition home or self-care (01) ==
LOC: SDC 05-10 09:30
PROVIDERS: ATTEND Surgery
DX: K21.9 Gastro-esophageal reflux disease without esophagitis (principal); K29.50 Unspecified chronic gastritis without bleeding; K44.9 Diaphragmatic hernia without obstruction or gangrene; J45.909 Unspecified asthma, uncomplicated; F41.9 Anxiety disorder, unspecified; R00.0 Tachycardia, unspecified; Z91.09 Other allergy status, other than to drugs and biological substances; Z98.890 Other specified postprocedural states; Z98.891 History of uterine scar from previous surgery; Z90.49 Acquired absence of other specified parts of digestive tract; Z79.899 Other long term (current) drug therapy